=== PATIENT | male | born 1965 | race Caucasian/White ===

== ENCOUNTER 2024-07-20 06:30 | Day surgery (SDC) | payer BC, SELFPAY ==
[2024-07-20 10:34] VITALS: BMI 26.5
[2024-07-20 10:35] VITALS: BP 149/88; BMI 26.5
[2024-07-20] MEDS: TYLENOL 1000 MG PO (10:52)
[2024-07-20] MEDS: NORMOSOL-R/PLASMALYTE-A 1000 IV (10:57)
[2024-07-20 14:14] VITALS: BP 138/81
--- NOTE | 2024-07-20 14:15 | OR.RPT ---
Operative Report
Operative Report
Primary Surgeon: Jak
Pre-op Diagnosis: Left flank lipoma
Post-op Diagnosis: Same
Procedure Performed: Excision of left flank lipoma
Anesthesia Type: Local
Specimen / Cultures: Lipoma
Estimated Blood Loss: 2cc
Complications: None immediate
Operative Findings: 4cm x 4cm x 3cm lipoma, deep, abutting rib, excised in toto
Date of Surgery: 07/20/24
Indications: 59M with more than 10 year history of left flank bulge. Magnetic resonance imaging showed a lobulated mass without worrisome features. Excision under local only was elected.
PROCEDURE: After informed consent was obtained, the patient was marked and brought to the operating room. He was positioned in right lateral decubitus, prepped and draped in the usual sterile fashion. The skin over the marked lump was infiltrated
with lidocaine 1% with epi. A full thickness elliptical incision was made over the lump and carried down to the capsule with electrocautery. Additional lidocaine was infiltrated into the surrounding soft tissue. The lipoma was freed from its
surrounding attachments with blunt and sharp dissection and judicious electrocautery. It was undermined with cautery and ultimately excised in toto and passed off the table as specimen. The wound was irrigated with sterile saline and then closed in
layers with 3-0 vicryl at jaki's, then deep dermal interrupted sutures, followed by a running subcuticular 4-0 moncryl suture. Topical skin glue was applied. All counts were correct. The patient tolerated the procedure well and was transferred to
recovery room in stable condition.
== END 2024-07-20 14:33 | disposition home or self-care (01) ==
LOC: SDS 06:30
PROVIDERS: ATTENDING PHYSICIAN Surgery
DX: D17.1 Benign lipomatous neoplasm of skin and subcutaneous tissue of trunk (principal)
CPT/HCPCS: 21931; 88304

== ENCOUNTER → 2024-08-18 08:26 | Outpatient (REF) | payer BC, SELFPAY ==
[2024-08-18 10:02] LABS: % Eosinophils 4.5 % (0-6); % Immature Granulocytes 0.2 % (0-0.5); % Lymphocytes 27.4 % (20.5-51.1); % Monocytes 6.1 % (1.7-9.3); % Neutrophils 60.8 % (42.2-75.2); Absolute Basophils 0.1 10^3/uL (0-0.2); Absolute Eosinophils 0.3 10^3/uL (0-0.7); Absolute Lymphocytes 1.7 10^3/uL (1.2-3.4); Absolute Monocytes 0.4 10^3/uL (0.1-0.6); Absolute Neutrophils 3.8 10^3/uL (1.4-6.5); Hematocrit 40.9 % (39.0-52.0); Hemoglobin 13.8 g/dL (13.0-18.0); Mean Corp Hgb Conc. 33.7 g/dL (33.0-37.0); Mean Corpuscular Volume 88.9 fL (80.0-94.0); Mean Platelet Volume 10.7 fL (7.4-10.4); Nucleated Red Blood Cells % 0 % (-); Platelet Count 249 10^3/uL (130-400); Red Cell Dist. Width 12.2 % (11.5-14.5); White Blood Cell Count 6.2 10^3/uL (4.8-10.8)
[2024-08-18 10:39] LABS: ALT (SGPT) 30 U/L (0-50); AST (SGOT) 27 U/L (17-59); Albumin 4.5 g/dl (3.5-5.0); Alkaline Phosphatase 43 U/L (38-126); Blood Urea Nitrogen 15 mg/dl (9-20); Calcium 9.7 mg/dl (8.4-10.2); Carbon Dioxide 29 mmol/L (22-30); Chloride 103 mmol/L (98-107); Glucose 96 mg/dl (70-99); HDL Cholesterol 45 mg/dl; LDL Cholesterol, Calculated 66 mg/dl; Potassium 4.9 mmol/L (3.5-5.1); Sodium 144 mmol/L (135-145); Total Bilirubin 0.5 mg/dl (0.2-1.3); Total Cholesterol 128 mg/dl (50-199); Triglyceride 85 mg/dl (10-149); Very Low Density Lipoprotein 17 mg/dl (0-30); eGFR > 60.00
[2024-08-18 11:02] LABS: PSA, Total - Screen 2.66 ng/ml (0.0-4.0); TSH Reflex To Free T4 2.02 uIU/ml (0.47-4.68)
[2024-08-18 11:39] LABS: Glycohemoglobin (HgbA1c) 5.4 % (4.0-5.6)
== END ==
LOC: REG 08:26
PROVIDERS: ATTENDING PHYSICIAN Nurse Practitioner Family
DX: I10 Essential (primary) hypertension (principal); E78.5 Hyperlipidemia, unspecified; G43.909 Migraine, unspecified, not intractable, without status migrainosus; D17.1 Benign lipomatous neoplasm of skin and subcutaneous tissue of trunk; Z12.11 Encounter for screening for malignant neoplasm of colon; Z12.5 Encounter for screening for malignant neoplasm of prostate; Z23 Encounter for immunization
CPT/HCPCS: 36415; 80053; 80061; 83036; 84443; 85025; G0103

== ENCOUNTER → 2025-05-09 06:59 | Outpatient (REF) | payer BC, SELFPAY ==
[2025-05-09 09:58] LABS: Hematocrit 39.6 % (39.0-52.0); Hemoglobin 13.4 g/dL (13.0-18.0); Mean Corp Hgb Conc. 33.8 g/dL (33.0-37.0); Mean Corpuscular Volume 91.7 fL (80.0-94.0); Nucleated Red Blood Cells % 0 % (-); Platelet Count 219 10^3/uL (130-400); Red Cell Dist. Width 12.1 % (11.5-14.5)
[2025-05-09 10:44] LABS: Glycohemoglobin (HgbA1c) 5.4 % (4.0-5.6)
[2025-05-09 10:46] LABS: ALT (SGPT) 32 U/L (0-50); AST (SGOT) 28 U/L (17-59); Albumin 4.4 g/dl (3.5-5.0); Alkaline Phosphatase 45 U/L (38-126); Blood Urea Nitrogen 16 mg/dl (9-20); Calcium 9.5 mg/dl (8.4-10.2); Carbon Dioxide 27 mmol/L (22-30); Chloride 109 mmol/L (98-107); Glucose 104 mg/dl (70-99); HDL Cholesterol 42 mg/dl; LDL Cholesterol, Calculated 73 mg/dl; Potassium 4.3 mmol/L (3.5-5.1); Sodium 147 mmol/L (135-145); Total Protein 6.8 g/dl (6.3-8.2); Very Low Density Lipoprotein 14 mg/dl (0-30); eGFR > 60.00
[2025-05-09 11:15] LABS: PSA, Total - Screen 2.32 ng/ml (0.0-4.0)
== END ==
LOC: HWLAB 06:59
PROVIDERS: ATTENDING PHYSICIAN Nurse Practitioner Family
DX: Z13.31 Encounter for screening for depression (principal); I10 Essential (primary) hypertension; E78.5 Hyperlipidemia, unspecified; G43.909 Migraine, unspecified, not intractable, without status migrainosus; Z12.11 Encounter for screening for malignant neoplasm of colon; Z12.5 Encounter for screening for malignant neoplasm of prostate; R73.01 Impaired fasting glucose
CPT/HCPCS: 36415; 80053; 80061; 83036; 84443; 85025; G0103